=== PATIENT | female | born 1985 | race African-American/Black ===

== ENCOUNTER 2018-05-11 17:56 | Emergency (ER) | payer BC ==
--- NOTE | 2018-05-11 19:51 | RAD ---
PELVIS 1 VIEW: Date: 05/11/18 HISTORY: Trauma. Pain. COMPARISON: None. FINDINGS: Obturator rings are intact. No widening of the pubic symphysis nor the SI joints. Small acetabular os teophytes bilaterally. Left femoral head/neck ring osteophyte. IMPRESSION: No acute osseous abnormality. POS: HOME
--- NOTE | 2018-05-11 19:51 | RAD ---
CHEST 1 VIEW: Date: 05/11/18 HISTORY: Trauma. COMPARISON: None. FINDINGS: Lungs are clear. No pneumothorax or effusion. Cardiac silhouette and mediastinal contour within riley l limits. Low grade dextroscoliosis of thoracolumbar junction. No displaced rib fracture. The clavicl es are intact. IMPRESSION: No acute intrathoracic abnormality. POS: HOME
--- NOTE | 2018-05-11 19:52 | RAD ---
RIGHT HAND 3 VIEWS: Date: 05/11/18 HISTORY: Trauma. Pain. Thumb pain. COMPARISON: None. FINDINGS: No acute fracture or malalignment. Soft tissues unremarkable. IMPRESSION: No acute fracture or malalignment. POS: HOME
== END 2018-05-11 18:45 | disposition home or self-care (01) ==
LOC: ERS 17:56
DX: S63.601A Unspecified sprain of right thumb, initial encounter (principal); S70.12XA Contusion of left thigh, initial encounter; S70.11XA Contusion of right thigh, initial encounter; V43.52XA Car driver injured in collision with other type car in traffic accident, initial encounter
CPT/HCPCS: 71045; 72170